=== PATIENT | female | born 1990 | race Caucasian/White ===

== ENCOUNTER → 2016-12-12 | Outpatient (CLI) | payer MEDICARE, MEDICAID ==
[~2016-12-12] MED LIST: CELEXA10 MG PO; COGENTIN1 MG PO; COLACE100 MG PO; CYMBALTA30 MG PO; FEOSOL325 MG PO; GLUCOPHAGE500 MG PO; LAMICTAL200 MG PO; LAMICTAL25 MG PO; LIPITOR10 MG PO; LOPRESSOR100 MG PO; SAPHRIS10 MG PO; TOFRANIL25 MG PO; TOPROL XL100 MG PO
== END | disposition disaster alternative care site (69) ==
LOC: GDIC 12:35
DX: E11.8 Type 2 diabetes mellitus with unspecified complications (principal)
CPT/HCPCS: G0109